=== PATIENT | female | born 1945 | race Two or more races ===

== ENCOUNTER 2021-11-25 07:48 | Emergency (ER) | payer OTHER ==
[~2021-11-25] VITALS: Ht 160 cm; Wt 75.7 kg
[2021-11-25] MEDS ORDERED: FELDENE20 MG PO (08:16)
== END 2021-11-25 11:04 | disposition home or self-care (01) ==
LOC: ER 07:48
DX: U07.1 COVID-19 (principal); J06.9 Acute upper respiratory infection, unspecified